=== PATIENT | female | born 1975 | race African-American/Black ===

== ENCOUNTER 2019-10-21 18:58 | Emergency (ER) | payer OTHER ==
[~2019-10-21] VITALS: Ht 157.5 cm; Wt 64.4 kg
[2019-10-21 19:53] LABS: BASOPHILS ABSOLUTE AUTO 0.05 K/mm3 (0.00-0.23); BASOPHILS PERCENT AUTO 1 % (0-2); EOSINOPHILS ABSOLUTE AUTO 0.23 K/mm3 (0.00-0.68); EOSINOPHILS PERCENT AUTO 3 % (0-6); Hematocrit 42.4 % (33.0-51.0); Hemoglobin 13.6 g/dL (11.5-16.0); IMMATURE GRAN ABSOLUTE AUTO 0.01 K/mm3 (0.00-0.10); IMMATURE GRAN PERCENT AUTO 0 % (0-1); LYMPHOCYTES ABSOLUTE AUTO 1.34 K/mm3 (0.84-5.20); LYMPHOCYTES PERCENT AUTO 15 % (21-46); MONOCYTES ABSOLUTE AUTO 0.54 K/mm3 (0.16-1.47); MONOCYTES PERCENT AUTO 6 % (4-13); Mean Corpuscular HGB 27.3 pg (26.0-34.0); Mean Corpuscular HGB Conc 32.1 g/dL (31.5-36.5); Mean Corpuscular Volume 85 fL (80-100); Mean Platelet Volume 9.2 fL (9.1-12.4); NEUTROPHILS ABSOLUTE AUTO 6.88 K/mm3 (1.96-9.15); NEUTROPHILS PERCENT AUTO 76 % (41-73); Platelet Count 423 K/mm3 (150-400); RDW Coefficient Variation 15.9 % (11.7-14.2); RDW Standard Deviation 49.8 fL (35.1-46.3); Red Blood Cell Count 4.99 M/mm3 (3.80-5.20); White Blood Cell Count 9.05 K/mm3 (4.00-11.30)
[2019-10-21 20:16] LABS: Alanine Aminotransfer (ALT/SGP 23 U/L (12-78); Albumin, Blood 3.7 g/dL (3.4-5.0); Albumin/Globulin Ratio 0.6 (0.8-1.8); Alk Phos 101 U/L (50-136); Anion Gap 5 mmol/L (6-16); Aspartate Aminotrans (AST/SGOT 16 U/L (12-37); Bilirubin, Total 0.2 mg/dL (0.1-1.0); Blood Urea Nitrogen 11 mg/dL (8-24); Bun/Creatinine Ratio 14.7 (12.0-20.0); CO2, Blood 27 mmol/L (21-32); Calcium, Blood 9.4 mg/dL (8.5-10.1); Chloride, Blood 103 mmol/L (98-108); Creatinine, Blood 0.75 mg/dL (0.40-1.00); Glomerular Filtration Rate >60 (60-); Glucose, Blood 100 mg/dL (70-99); Potassium, Blood 3.4 mmol/L (3.5-5.5); Sodium, Blood 135 mmol/L (136-145); Total Protein, Blood 9.7 g/dL (6.4-8.2); Troponin I <0.015 ng/mL (0.000-0.040)
[2019-10-21] MEDS ORDERED: Norvasc5 MG PO (21:51)
== END 2019-10-21 22:03 | disposition home or self-care (01) ==
LOC: ER 18:58
PROVIDERS: Physician Assistant
DX: I10 Essential (primary) hypertension (principal); M65.341 Trigger finger, right ring finger; M65.351 Trigger finger, right little finger; F17.200 Nicotine dependence, unspecified, uncomplicated
CPT/HCPCS: 36415; 71046; 80053; 84484; 85025; 93005; 93010; 99284-25

== ENCOUNTER 2019-11-03 12:54 | Emergency (ER) | payer OTHER ==
[~2019-11-03] VITALS: Ht 157.5 cm; Wt 67.6 kg
[~2019-11-03 12:54] MED LIST: Norvasc5 MG PO
[2019-11-03 13:27] LABS: BASOPHILS ABSOLUTE AUTO 0.07 K/mm3 (0.00-0.23); BASOPHILS PERCENT AUTO 1 % (0-2); EOSINOPHILS ABSOLUTE AUTO 0.15 K/mm3 (0.00-0.68); EOSINOPHILS PERCENT AUTO 1 % (0-6); IMMATURE GRAN ABSOLUTE AUTO 0.05 K/mm3 (0.00-0.10); IMMATURE GRAN PERCENT AUTO 0 % (0-1); LYMPHOCYTES ABSOLUTE AUTO 1.79 K/mm3 (0.84-5.20); LYMPHOCYTES PERCENT AUTO 13 % (21-46); MONOCYTES ABSOLUTE AUTO 0.94 K/mm3 (0.16-1.47); MONOCYTES PERCENT AUTO 7 % (4-13); Mean Corpuscular HGB 27.5 pg (26.0-34.0); Mean Corpuscular HGB Conc 32.5 g/dL (31.5-36.5); Mean Corpuscular Volume 85 fL (80-100); NEUTROPHILS ABSOLUTE AUTO 10.83 K/mm3 (1.96-9.15); NEUTROPHILS PERCENT AUTO 78 % (41-73); RDW Coefficient Variation 15.4 % (11.7-14.2); RDW Standard Deviation 48.2 fL (35.1-46.3); Red Blood Cell Count 4.72 M/mm3 (3.80-5.20); White Blood Cell Count 13.83 K/mm3 (4.00-11.30)
[2019-11-03 13:30] LABS: Platelet Count 431 K/mm3 (150-400)
[2019-11-03 13:43] LABS: International Normalized Ratio 0.99; Prothrombin Time Results 10.6 Sec (9.7-11.5)
[2019-11-03 13:58] LABS: Alanine Aminotransfer (ALT/SGP 24 U/L (12-78); Albumin, Blood 3.5 g/dL (3.4-5.0); Albumin/Globulin Ratio 0.6 (0.8-1.8); Alk Phos 98 U/L (50-136); Anion Gap 7 mmol/L (6-16); Aspartate Aminotrans (AST/SGOT 14 U/L (12-37); Bilirubin, Total 0.2 mg/dL (0.1-1.0); Blood Urea Nitrogen 14 mg/dL (8-24); Bun/Creatinine Ratio 19.9 (12.0-20.0); CO2, Blood 23 mmol/L (21-32); Calcium, Blood 9.2 mg/dL (8.5-10.1); Chloride, Blood 106 mmol/L (98-108); Creatinine, Blood 0.71 mg/dL (0.40-1.00); Ethanol (Alcohol), Blood, Med <3 mg/dL; Globulin, Blood 6.2 g/dL (2.2-4.0); Glomerular Filtration Rate >60 (60-); Glucose, Blood 111 mg/dL (70-99); Potassium, Blood 3.9 mmol/L (3.5-5.5); Sodium, Blood 136 mmol/L (136-145); Total Protein, Blood 9.7 g/dL (6.4-8.2)
== END 2019-11-03 14:32 | disposition home or self-care (01) ==
LOC: ER 12:54
PROVIDERS: Physician Assistant
DX: I10 Essential (primary) hypertension (principal); F17.210 Nicotine dependence, cigarettes, uncomplicated
CPT/HCPCS: 36415; 70450; 80053; 85025; 85610; 93005; 93010; 99285-25; G0480

== ENCOUNTER → 2021-12-01 | Outpatient (CLI) | payer OTHER ==
[~2021-12-01] MED LIST changes: +ASPI81CH PO; +ATORVASTATIN CA20 MG PO; +CARVEDILOL12.5 MG PO; +CLINGEL TOP; +HYDCHL25 PO; +LOPE2C PO; +LOSARTAN POTAS100 M1 PO; +Minocycline HC100 MG PO; +PROCARDIA XL90 MG PO; +ZANAFLEX4 M1 PO
== END | disposition home or self-care (01) ==
LOC: LAB SHORT 07:45 → LAB 07:45
DX: N18.30 Chronic kidney disease, stage 3 unspecified (principal); D63.1 Anemia in chronic kidney disease; N25.81 Secondary hyperparathyroidism of renal origin; E55.9 Vitamin D deficiency, unspecified; E78.00 Pure hypercholesterolemia, unspecified; R76.9 Abnormal immunological finding in serum, unspecified; R94.5 Abnormal results of liver function studies; R94.6 Abnormal results of thyroid function studies; D51.8 Other vitamin B12 deficiency anemias; D52.8 Other folate deficiency anemias; D50.9 Iron deficiency anemia, unspecified
CPT/HCPCS: 86335

== ENCOUNTER → 2021-12-02 | Outpatient (CLI) | payer OTHER ==
[2021-12-02 18:42] LABS: Microalbumin, Urine Quant. 5.98 mg/L (0.000-20.000); Protein, Urine Quantitative 7.3 mg/dL (0.0-11.9)
== END ==
LOC: LAB 15:08 → LAB SHORT 15:08
PROVIDERS: Internal Medicine Nephrology
DX: N18.30 Chronic kidney disease, stage 3 unspecified (principal); D63.1 Anemia in chronic kidney disease; N25.81 Secondary hyperparathyroidism of renal origin; E55.9 Vitamin D deficiency, unspecified; E78.00 Pure hypercholesterolemia, unspecified; R76.9 Abnormal immunological finding in serum, unspecified; R94.5 Abnormal results of liver function studies; R94.6 Abnormal results of thyroid function studies; D51.8 Other vitamin B12 deficiency anemias; D52.8 Other folate deficiency anemias; D50.9 Iron deficiency anemia, unspecified
CPT/HCPCS: 82043; 82570; 84133; 84156; 84300

== ENCOUNTER → 2022-01-27 | Outpatient (CLI) | payer OTHER | END | disposition home or self-care (01) | LOC: LAB 11:59 → LAB SHORT 11:59 | DX: L73.2 Hidradenitis suppurativa (principal) | CPT/HCPCS: 87070; 87075; 87205 ==